=== PATIENT | female | born 1975 | race Caucasian/White ===

== ENCOUNTER 2023-09-02 12:08 | Outpatient (CLI) | payer OTHER | END 2023-09-02 12:09 | disposition home or self-care (01) | LOC: BICMAMMO 12:08 | PROVIDERS: ATTEND Nurse Practitioner Family | DX: Z12.31 Encounter for screening mammogram for malignant neoplasm of breast (principal); Z80.3 Family history of malignant neoplasm of breast; Z98.82 Breast implant status | CPT/HCPCS: 77063; 77067 ==

== ENCOUNTER 2024-09-30 08:39 | Outpatient (CLI) | payer OTHER | END 2024-09-30 08:40 | disposition home or self-care (01) | LOC: CT 08:39 | PROVIDERS: ATTEND Nurse Practitioner Family | DX: R74.8 Abnormal levels of other serum enzymes (principal); D72.828 Other elevated white blood cell count; N92.6 Irregular menstruation, unspecified; D64.9 Anemia, unspecified | CPT/HCPCS: 74178 ==